=== PATIENT | male | born 1995 | race Native Hawaiian/Other Pacific Islander ===

== ENCOUNTER 2018-07-19 22:29 | Emergency (ER) | payer BC ==
[~2018-07-19] VITALS: Ht 177.8 cm; Wt 93.0 kg
[2018-07-19 23:34] LABS: PLATELET COUNT 285 K/uL (142-355)
[2018-07-19 23:39] LABS: SODIUM 140 mmol/L (136-145)
[2018-07-20 00:39] VITALS: BP 110/72; TEMP 98.2
== END 2018-07-20 00:39 | disposition home or self-care (01) ==
LOC: ED 22:29
PROVIDERS: Internal Medicine
DX: M94.0 Chondrocostal junction syndrome [Tietze] (principal); R07.89 Other chest pain; R94.5 Abnormal results of liver function studies
CPT/HCPCS: 80053; 82550; 82553; 84484; 85027; 93005; 99283